=== PATIENT | female | born 1985 | race Caucasian/White ===

== ENCOUNTER 2020-03-03 17:16 | Outpatient (CLI) | payer BC | END 2020-03-03 17:17 | disposition home or self-care (01) | LOC: COV 17:16 | PROVIDERS: ATTEND Family Medicine | DX: Z20.828 Contact with and (suspected) exposure to other viral communicable diseases (principal) ==

== ENCOUNTER 2021-05-16 19:59 | Emergency (ER) | payer BC, OTHER ==
--- NOTE | 2021-05-16 20:36 | XRAY Report ---
PROCEDURE: Chest 1 View X-Ray INDICATIONS: Chest Pain TECHNIQUE: One view of the chest was acquired. COMPARISON: None FINDINGS: Surgical changes and devices: None. Lungs and pleura: No pleural effusions or pneumothorax. Lungs are clear. Mediastinum: Mediastinal contours appear normal. Heart size is normal. Bones and chest wall: No suspicious bony lesions. Overlying soft tissues appear unremarkable. IMPRESSION: No acute process. Reviewed by: Adelaide Brice MD on 05/16/2021 8:35 PM [facility] Approved by: Adelaide Brice MD on 05/16/2021 8:35 PM [facility] Station ID: [id number]
[2021-05-16 20:40] LABS: BASOPHILS # (AUTO) 0.1 10^3/uL (0.0-0.1); BASOPHILS % (AUTO) 0.9 %; EOSINOPHILS # (AUTO) 0.3 10^3/uL (0.0-0.7); EOSINOPHILS % (AUTO) 4.1 %; HCT - HEMATOCRIT 41.5 % (37.0-47.0); HGB - HEMOGLOBIN 13.6 g/dL (12.0-16.0); LYMPHOCYTES # (AUTO) 2.8 10^3/uL (1.5-3.5); LYMPHOCYTES % (AUTO) 36.2 %; MEAN CORPUSCULAR HEMOGLOBIN 29.4 pg (27.0-31.0); MEAN CORPUSCULAR HGB CONC 32.8 g/dL (32.0-36.0); MEAN CORPUSCULAR VOLUME 89.8 fL (81.0-99.0); MEAN PLATELET VOLUME 9.7 fL (7.9-10.8); MONOCYTES # (AUTO) 0.5 10^3/uL (0.0-1.0); MONOCYTES % (AUTO) 5.7 %; NEUTROPHILS # (AUTO) 4.2 10^3/uL (1.5-6.6); PLT - PLATELET COUNT 289 10^3/uL (130-450); RED BLOOD COUNT 4.62 10^6/uL (4.20-5.40); RED CELL DISTRIBUTION WIDTH 13.1 % (12.0-15.0); WHITE BLOOD COUNT 7.8 x10^3/uL (4.8-10.8)
[2021-05-16 20:56] LABS: ALBUMIN 4.5 g/dL (3.2-5.5); ALBUMIN/GLOBULIN RATIO 1.5 (1.0-2.2); BILIRUBIN,TOTAL 0.4 mg/dL (0.2-1.0); CALCIUM 9.4 mg/dL (8.5-10.3); POTASSIUM 3.8 mmol/L (3.5-5.0); TOTAL PROTEIN 7.5 g/dL (6.7-8.2)
--- NOTE | 2021-05-16 22:10 | ED Physician Documentation ---
PD HPI CHEST PAIN - Stated complaint Stated Complaint: CHEST PX - Chief complaint Chief Complaint: Cardiac - History obtained from History obtained from: Patient - History of Present Illness Timing - onset: Today (this morning) Timing - onset during: Light activity Timing - details: Gradual onset Pain level now: 3 Quality: Sharp, Pain Location: Substernal Radiation: Back Improved by: Other (no ameliorating factors) Worsened by: Movement Associated symptoms: Shortness of air. No: Diaphoresis, Cough Similar symptoms before: Has not had sx before Recently seen: Not recently seen Review of Systems Constitutional: reports: Reviewed and negative Cardiac: reports: Chest pain / pressure. denies: Palpitations, Pedal edema, Calf pain Respiratory: reports: Dyspnea. denies: Cough, Hemoptysis, Wheezing GI: reports: Reviewed and negative Musculoskeletal: denies: Extremity swelling PD PAST MEDICAL HISTORY - Past Medical History Past Medical History: No - Past Surgical History Past Surgical History: No - Allergies Allergies/Adverse Reactions: Allergies Allergy/AdvReac Type Severity Reaction Status Date / Time No Known Drug Allergies Allergy Verified 05/16/21 20:07 PD ED PE NORMAL - Vitals Vital signs reviewed: Yes - General General: Alert and oriented X 3, No acute distress, Well developed/nourished - Neck Neck: Supple, no meningeal sign - Cardiac Cardiac: RRR, No murmur, No gallop, No rub - Respiratory Respiratory: No respiratory distress, Clear bilaterally - Abdomen Abdomen: Soft, Non tender - Derm Derm: Normal color, Warm and dry - Extremities Extremities: No edema Results - Vitals Vitals: Oxygen O2 Source Room air - EKG (time done) No standard instances Rate: Rate (enter#) (76) Rhythm: NSR [place]: Normal Intervals: Normal NC QRS: Normal Ischemia: Normal ST segments - Labs Labs: Laboratory Tests 05/16/21 05/16/21 05/16/21 20:34 20:34 20:34 WBC 7.8 RBC 4.62 Hgb 13.6 Hct 41.5 MCV 89.8 MCH 29.4 MCHC 32.8 RDW 13.1 Plt Count 289 MPV 9.7 Neut # (Auto) 4.2 Lymph # (Auto) 2.8 Lane # (Auto) 0.5 Eos # (Auto) 0.3 Baso # (Auto) 0.1 Absolute Nucleated RBC 0.00 Nucleated RBC % 0.0 Sodium 136 Potassium 3.8 Chloride 103 Carbon Dioxide 26 Anion Gap 7.0 BUN 14 Creatinine 1.0 Estimated GFR (MDRD) 63 L Glucose 119 H Calcium 9.4 Total Bilirubin 0.4 AST 17 ALT 14 Alkaline Phosphatase 59 Troponin I High Sens 2.3 Total Protein 7.5 Albumin 4.5 Globulin 3.0 Albumin/Globulin Ratio 1.5 Lipase 31 - Rads (name of study) chest xray Radiology: Prelim report reviewed, See rad report PD MEDICAL DECISION MAKING - ED course Complexity details: reviewed results, re-evaluated patient, considered differential, d/w patient ED course: chest pain radiating to back since this morning. No CAD risk factors. PERC criteria negative. Normal exam including cardiac and pulmonary auscultation, normal blood tests including hs-cTn, and no abnormalities on EKG nor CXR. Etiology of her symptoms is unclear at this time. Results d/w patient, return precautions reviewed. Departure - Departure Disposition: 01 Home, Self Care Clinical Impression: Chest pain Condition: Good Instructions: ED Chest Pain Atypical Unkn Cause Comments: The results of tonight's tests are unremarkable (EKG, chest xray, blood tests including a cardiac enzyme test). Obviously this is reassuring but the cause of your symptoms remains unclear at this time. Follow up with your primary care provider, as further tests might be needed even if your symptoms resolve. Return to the emergency department if worse or new concerning signs/symptoms develop Discharge Date/Time: 05/16/21 22:32
[2021-05-16 22:33] VITALS: BP 139/88
== END 2021-05-16 22:32 | disposition home or self-care (01) ==
LOC: ED 19:59
DX: R07.9 Chest pain, unspecified (principal)
CPT/HCPCS: 36415; 80053; 83690; 84484; 85025; 93005; 99282; 99284